=== PATIENT | female | born 1930 | race Caucasian/White ===

== ENCOUNTER → 2016-11-14 | Outpatient (CLI) | payer OTHER | LOC: BMCIMAGING 13:51 | PROVIDERS: ATTEND Nurse Practitioner Adult Health | DX: N83.8 Other noninflammatory disorders of ovary, fallopian tube and broad ligament (principal) ==

== ENCOUNTER → 2016-12-10 | Outpatient (CLI) | payer OTHER ==
[~2016-12-10] MED LIST: IOPAMIDOL (ISOVUE-300) 100 ML BTL IV ONE
== END ==
LOC: FIMAGING 12:25
PROVIDERS: ATTEND Internal Medicine
DX: K46.9 Unspecified abdominal hernia without obstruction or gangrene (principal); K44.9 Diaphragmatic hernia without obstruction or gangrene; K40.90 Unilateral inguinal hernia, without obstruction or gangrene, not specified as recurrent
CPT/HCPCS: 74177; Q9967

== ENCOUNTER 2017-01-07 05:56 | Inpatient (IN) | payer OTHER ==
[2017-01-07] MEDS ORDERED: ONDANSETRON 4 MG/2 ML VIAL IVP ONE ×2 (06:15→09:29)
[2017-01-07] MEDS ORDERED: NS 1,000 ML IV ONE (06:15)
--- NOTE | 2017-01-07 06:15 | EDPHY ---
H & P Stated Complaint: NVD, malaise, generalized pain, since last evening, sharp pains R head Source: Patient - Personal History Current Tetanus/Diphtheria Vaccine: Yes Current Tetanus Diphtheria and Acellular Pertussis (TDAP): Yes - Medical/Surgical History Hx Asthma: No Hx Chronic Respiratory Disease: No Hx Diabetes: No Hx Cardiac Disease: No Hx Renal Disease: No Hx Cirrhosis: No Hx Alcoholism: No Hx HIV/AIDS: No Hx Splenectomy or Spleen Trauma: No Other PMH: left shoulder rotator cuff. Rib fx, cholecystectomy, fracture right foot, ovarian cyst, HTN, hernia repair, osteopenia - Social History Smoking Status: Never smoked <Emily Serrano - Last Filed: 01/07/17 06:47> <Miguel Angel Cunningham - Last Filed: 01/07/17 10:30> Time Seen by Provider: 01/07/17 06:09 HPI/ROS: HPI The patient presents with nausea, vomiting, diarrhea which began last night at approximately 6:00 p.m. suddenly. She has had 1 episode of nonbloody nonbilious emesis. She has had multiple episodes of which she describes as explosive diarrhea which is watery and nonbloody. She is having these episodes nearly every 10 minutes. This is not associated with any fever or abdominal pains. She resides at [facility] and there are several sick residents there with similar symptoms. She has not recently been on antibiotics. She also complains of right-sided head pain which feels like a tingling sensation around her ear. It reminds her of the time when she had shingles 20 years ago. This is been present for about 1 week. She has not had any rash. It is quite mild. REVIEW OF SYSTEMS Constitutional: No fever, no chills. Eyes: No discharge. ENT: No sore throat. Cardiovascular: No chest pain, no palpitations. Respiratory: No cough, no shortness of breath. Gastrointestinal: No abdominal pain, no vomiting. Genitourinary: No hematuria. Musculoskeletal: No back pain. Skin: No rashes. Neurological: No headache. PMHx: Left-sided inguinal hernia repair, left-sided ovarian cyst Soc Hx: Resides at [facility] PHYSICAL General Appearance: Alert, no distress Eyes: Pupils equal and round no pallor or injection ENT, Mouth: Mucous membranes moist Respiratory: There are no retractions, lungs are clear to auscultation Cardiovascular: Regular rate and rhythm Gastrointestinal: Abdomen is soft with tenderness in L inguinal region which is quite mild, no overlying skin changes or area of fluctuance, no masses, bowel sounds normal Neurological: A&O, moves all extremities Skin: Warm and dry, no rashes Musculoskeletal: Neck is supple non tender Extremities: symmetrical, full range of motion Psychiatric: Patient is oriented X 3, there is no agitation (Emily Serrano) Constitutional: Initial Vital Signs Temperature (C) 36.9 C 01/07/17 05:58 Heart Rate 94 01/07/17 05:58 Respiratory Rate 16 01/07/17 05:58 Blood Pressure 142/78 H 01/07/17 05:58 O2 Sat (%) 98 01/07/17 05:58 O2 Delivery Mode Room Air Allergies/Adverse Reactions: codeine Allergy (Verified 01/07/17 06:05) Vomiting Home Medications: Medication Instructions Recorded Aspirin EC [Aspirin EC 81 mg (*)] 81 mg PO DAILY 09/26/15 Tears/Hypromellose [Natural 1 drops EACHEYE BID 09/26/15 Balance] cycloSPORINE 0.05% [Restasis Opht 1 drop EACHEYE BID 09/26/15 Drops(*)] amLODIPine BESYLATE [Norvasc 2.5 2.5 mg PO DAILY #30 tab 09/27/15 mg (*)] Herbals/Supplements -Info Only 1 ea PO DAILY 01/09/16 Multivitamin with Minerals 1 each PO DAILY 01/09/16 [Multiple Vitamin] Ondansetron Odt [Zofran Odt 4 mg 4 mg PO Q4 PRN #10 tab 01/07/17 (*)] Medical Decision Making <Emily Serrano - Last Filed: 01/07/17 06:47> <Miguel Angel Cunningham - Last Filed: 01/07/17 10:30> - Diagnostics Imaging: Imaging Impressions Abdomen CT 01/07/17 06:40 Impression: 1. Stable left adnexal cyst. 2. Previous cholecystectomy, hysterectomy, and right oophorectomy as well as appendectomy. 3. Scoliosis with underlying degenerative disk disease involving the thoracolumbar spine visualized severe spinal stenosis at L4-L5. These findings were discussed by telephone with Dr. Miguel Angel Cunningham at 0 825hrs. ED Course/Re-evaluation: 7:00 a.m.- The patient is awaiting most labs and CT scan. The case is signed out to the oncoming provider Dr. Cunningham. (Emily Serrano) Differential Diagnosis: This is an 86-year-old female with history of left ovarian cyst, left inguinal hernia repair, hypertension, who resides at an assisted living facility and is presenting with about 12 hours of nausea, vomiting, diarrhea. There are several sick residents at her facility. On exam, she is relatively well appearing with normal vital signs. She does have mild tenderness in her left inguinal region, however says this has been present for the last several months and is about 1 year status post inguinal hernia repair. She is complaining of a right-sided intermittent headache for the last 1 week, feels similar to her prior episode of shingles, however I do not appreciate any rash and her TM is normal appearing. Ear canal shows no vesicles. Differential diagnosis includes viral gastroenteritis, toxin mediated enterocolitis, colitis, less likely appendicitis or incarcerated hernia. Plan for IV fluids, basic labs, stool culture, CT scan. (Emily Serrano) Other Provider: 0900: Reassessed patient. She is feeling improved and wants to go home with her daughter, who is at bedside. She is tolerating PO without issue. I offered admission, which she declined. She will be discharged gastroenteritis and recommended follow up with her PCP. Return precautions given. She is comfortable with this plan. 1000: As patient was preparing for discharge, she began to feel nauseated again. Her daughter does not believe she will be able to remain hydrated at home as she is too weak to care for herself. She is now having difficulty tolerating PO fluids. She will require admission for gastroenteritis and dehydration. 1030: Dr. Mesa, hospitalist, accepts admission. (Miguel Angel Cunningham) - Data Points Laboratory Results: Laboratory Results 01/07/17 06:30 01/07/17 06:30 01/07/17 01/07/17 01/07/17 08:30 06:30 06:30 WBC 6.88 10^3/uL 10^3/uL (3.80-9.50) RBC 4.02 10^6/uL L 10^6/uL (4.18-5.33) Hgb 12.5 g/dL L g/dL (12.6-16.3) Hct 37.6 % L % (38.0-47.0) MCV 93.5 fL fL (81.5-99.8) MCH 31.1 pg pg (27.9-34.1) MCHC 33.2 g/dL g/dL (32.4-36.7) RDW 13.3 % % (11.5-15.2) Plt Count 206 10^3/uL 10^3/uL (150-400) MPV 10.7 fL fL (8.7-11.7) Neut % (Auto) 86.1 % H % (39.3-74.2) Lymph % (Auto) 3.9 % L % (15.0-45.0) [place] % (Auto) 9.3 % % (4.5-13.0) Eos % (Auto) 0.0 % L % (0.6-7.6) Baso % (Auto) 0.3 % % (0.3-1.7) Nucleat RBC Rel Count 0.0 % % (0.0-0.2) Absolute Neuts (auto) 5.92 10^3/uL 10^3/uL (1.70-6.50) Absolute Lymphs (auto) 0.27 10^3/uL L 10^3/uL (1.00-3.00) Absolute Monos (auto) 0.64 10^3/uL 10^3/uL (0.30-0.80) Absolute Eos (auto) 0.00 10^3/uL L 10^3/uL (0.03-0.40) Absolute Basos (auto) 0.02 10^3/uL 10^3/uL (0.02-0.10) Absolute Nucleated RBC 0.00 10^3/uL 10^3/uL (0-0.01) Immature Gran % 0.4 % % (0.0-1.1) Immature Gran # 0.03 10^3/uL 10^3/uL (0.00-0.10) VBG Lactic Acid Sodium 138 mEq/L mEq/L (134-144) Potassium 3.7 mEq/L mEq/L (3.5-5.2) Chloride 107 mEq/L mEq/L (97-110) Carbon Dioxide 22 mEq/l mEq/l (22-31) Anion Gap 9 mEq/L mEq/L (8-16) BUN 24 mg/dL H mg/dL (7-23) Creatinine 0.7 mg/dL mg/dL (0.6-1.0) Estimated GFR > 60 Glucose 150 mg/dL H mg/dL (70-100) Calcium 8.9 mg/dL mg/dL (8.5-10.4) Total Bilirubin 1.0 mg/dL mg/dL (0.1-1.4) Conjugated Bilirubin 0.3 mg/dL mg/dL (0.0-0.5) Unconjugated Bilirubin 0.7 mg/dL mg/dL (0.0-1.1) AST 20 IU/L IU/L (14-46) ALT 25 IU/L IU/L (9-52) Alkaline Phosphatase 65 IU/L IU/L (38-126) Total Protein 6.7 g/dL g/dL (6.3-8.2) Albumin 4.0 g/dL g/dL (3.5-5.0) Lipase 46.0 IU/L IU/L (23-300) Urine Color YELLOW Urine Appearance CLEAR Urine pH 5.0 (5.0-7.5) Ur Specific [place] > 1.035 H (1.002-1.030) Urine Protein NEGATIVE (NEGATIVE) Urine Ketones NEGATIVE (NEGATIVE) Urine Blood NEGATIVE (NEGATIVE) Urine Nitrate NEGATIVE (NEGATIVE) Urine Bilirubin NEGATIVE (NEGATIVE) Urine Urobilinogen NEGATIVE EU EU (0.2-1.0) Ur Leukocyte Esterase NEGATIVE (NEGATIVE) Ur Culture Indicated? NOT INDICATED (NI) Urine Glucose NEGATIVE (NEGATIVE) 01/07/17 06:30 WBC RBC Hgb Hct MCV MCH MCHC RDW Plt Count MPV Neut % (Auto) Lymph % (Auto) [place] % (Auto) Eos % (Auto) Baso % (Auto) Nucleat RBC Rel Count Absolute Neuts (auto) Absolute Lymphs (auto) Absolute Monos (auto) Absolute Eos (auto) Absolute Basos (auto) Absolute Nucleated RBC Immature Gran % Immature Gran # VBG Lactic Acid 1.4 mmol/L mmol/L (0.7-2.1) Sodium Potassium Chloride Carbon Dioxide Anion Gap BUN Creatinine Estimated GFR Glucose Calcium Total Bilirubin Conjugated Bilirubin Unconjugated Bilirubin AST ALT Alkaline Phosphatase Total Protein Albumin Lipase Urine Color Urine Appearance Urine pH Ur Specific [place] Urine Protein Urine Ketones Urine Blood Urine Nitrate Urine Bilirubin Urine Urobilinogen Ur Leukocyte Esterase Ur Culture Indicated? Urine Glucose Medications Given: Discontinued Medications Sodium Chloride (Ns) 1,000 mls @ 0 mls/hr IV ONCE ONE PRN Reason: Wide Open Stop: 01/07/17 06:16 Last Admin: 01/07/17 06:27 Dose: 1,000 mls Ibuprofen (Motrin) 400 mg PO EDNOW ONE Stop: 01/07/17 09:31 Last Admin: 01/07/17 09:30 Dose: 400 mg Ondansetron HCl (Zofran) 4 mg IVP EDNOW ONE Stop: 01/07/17 06:16 Last Admin: 01/07/17 06:30 Dose: 4 mg Ondansetron HCl (Zofran) 4 mg IVP EDNOW ONE Stop: 01/07/17 09:30 Last Admin: 01/07/17 09:30 Dose: 4 mg Departure <Emily Serrano - Last Filed: 01/07/17 06:47> <Miguel Angel Cunningham - Last Filed: 01/07/17 10:30> - Departure Disposition: [facility] Inpatient Acute Clinical Impression: Nausea vomiting and diarrhea Condition: Fair Instructions: Dehydration (ED), Gastroenteritis (ED) Additional Instructions: Please make sure to drink plenty of fluids. You should return to the emergency room if your worse in any way. Referrals: Gio La MD [Primary Care Provider] - As per Instructions Prescriptions: Ondansetron Odt [Zofran Odt 4 mg (*)] 4 mg PO Q4 PRN #10 tab PRN Reason: Nausea/Vomiting, Can'T Take Po Report Scribed for: Miguel Angel Cunningham Report Scribed by: Cherrie Sánchez Date of Report: 01/07/17 Time of Report: 10:30 <Miguel Angel Cunningham - Last Filed: 01/07/17 10:30>
[2017-01-07 06:38] LABS: % IMMATURE GRANULYOCYTES 0.4 % (0.0-1.1); ABSOLUTE IMMATURE GRANULOCYTES 0.03 10^3/uL (0.00-0.10); ADD DIFF? NO; ADD MORPH? NO; ADD SCAN? NO; ATYPICAL LYMPHOCYTE FLAG 0 (0-99); FRAGMENT RBC FLAG 0 (0-99); HEMATOCRIT 37.6 % (38.0-47.0); HEMOGLOBIN 12.5 g/dL (12.6-16.3); LEFT SHIFT FLG 10 (0-99); LIPEMIA HEMOLYSIS FLAG 80 (0-99); MEAN CELL HEMOGLOBIN 31.1 pg (27.9-34.1); MEAN CELL HEMOGLOBIN CONCENTR. 33.2 g/dL (32.4-36.7); MEAN CELL VOLUME 93.5 fL (81.5-99.8); MEAN PLATELET VOLUME 10.7 fL (8.7-11.7); PLATELET CLUMPS FLAG 10 (0-99); PLATELET COUNT 206 10^3/uL (150-400); RED BLOOD CELL COUNT 4.02 10^6/uL (4.18-5.33); RED CELL DISTRIBUTION WIDTH 13.3 % (11.5-15.2)
[2017-01-07] MEDS ORDERED: IOPAMIDOL (ISOVUE-300) 100 ML BTL IV ONE (06:52)
[2017-01-07 07:01] LABS: ALANINE AMINOTRANSFERASE 25 IU/L (9-52); ALKALINE PHOSPHATASE 65 IU/L (38-126); ANION GAP 9 mEq/L (8-16); ASPARTATE AMINOTRANSFERASE 20 IU/L (14-46); BILIRUBIN-CONJUGATED 0.3 mg/dL (0.0-0.5); BILIRUBIN-UNCONJUGATED 0.7 mg/dL (0.0-1.1); CALCIUM 8.9 mg/dL (8.5-10.4); CARBON DIOXIDE 22 mEq/l (22-31); CHLORIDE 107 mEq/L (97-110); CREATININE 0.7 mg/dL (0.6-1.0); GLOMERULAR FILTRATION RATE > 60; GLUCOSE 150 mg/dL (70-100); POTASSIUM 3.7 mEq/L (3.5-5.2); SODIUM 138 mEq/L (134-144); TOTAL PROTEIN 6.7 g/dL (6.3-8.2)
[2017-01-07 08:58] LABS: COLOR YELLOW; LEUKOCYTE ESTERASE,URINE NEGATIVE (NEGATIVE); NITRITE,URINE NEGATIVE (NEGATIVE)
[2017-01-07] MEDS ORDERED: IBUPROFEN 200 MG TAB PO ONE (09:30)
[2017-01-07] MEDS ORDERED: ONDANSETRON DISINTEGRATING 4 MG TAB PO PRN (11:38)
[2017-01-07] MEDS ORDERED: ONDANSETRON 4 MG/2 ML VIAL IVP PRN (11:38)
[2017-01-07] MEDS: NS 1,000 ML IV SCH (13:00)
--- NOTE | 2017-01-07 13:46 | GHP ---
[f rep st] HISTORY AND PHYSICAL DATE OF ADMISSION: 01/07/2017 CHIEF COMPLAINT: Nausea with associated vomiting and diarrhea. HISTORY OF PRESENT ILLNESS: Sheri Crisostomo is an 86-year-old female, with a past medical history that includes hypertension, left inguinal hernia repair approximately a year ago with residual left lower quadrant pain, who presented to the emergency room with complaints of nausea, vomiting and diarrhea which began approximately at 6:00 p.m. last night. She had approximately 10 to 12 bouts of diarrhea last night and 1 bout this morning. She did not see any blood or maroon colored stool. She took Imodium without good results. She had 1 bout of vomiting last night, but none further. She denies any hematemesis associated with this. She denies any fever, but has had some chills. In addition, she has been complaining of ongoing left lower quadrant pain. This has been ongoing since she had a left inguinal hernia repair with Dr. Hall. She was seen and evaluated by Dr. Lawrence, who was on-call for him in the outpatient setting. He thought it was secondary to the mesh and recommended heat and ibuprofen, which have overall helped with the pain. In addition, she describes having flashes of pain on the right side of her head area. She said she had similar symptoms 20 years ago when she had shingles. She was vaccinated for the shingles. She has had no changes in her vision. She is overall feeling well, except for having the 1 episode of diarrhea and then had some nausea. PAST MEDICAL HISTORY: 1. Hypertension. 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 3. Sciatic back pain that has resolved. 4. 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 5. Ovarian cyst drainage. 6. Pulmonary nodules up to 6 mm in size. PAST SURGICAL HISTORY: 1. Bladder repair. 2. Hysterectomy in 1970. 3. Cholecystectomy. 4. Left inguinal hernia repair approximately a year ago. 5. Ovarian cyst drainage. SOCIAL HISTORY: She lives independently at [facility]. She uses a walker and a cane to ambulate. She rarely drinks any wine. She has 2 children. She has been since 1974. She is very active and does exercise classes. FAMILY HISTORY: Both parents are . ALLERGIES: Codeine. HOME MEDICATIONS: Include Restasis 1 drop to each eye b.i.d., Norvasc 2.5 mg p.o. q.h.s., Natural Balance tears t.i.d., Zofran 4 mg q.4 hours p.r.n., herbal supplements daily, and aspirin 81 mg daily. REVIEW OF SYSTEMS: A 10-point review of systems was performed. It was negative other than pertinent positives in HPI and Past Medical History. PHYSICAL EXAM: GENERAL: Sheri Crisostomo is an 86-year-old female, who appears to be in overall very good health. VITAL SIGNS: Blood pressure is 134/ 69, heart rate 70, respiratory rate is 18, O2 sats on room air 92%, temperature is 36.0 Celsius. EYES: Pupils are equal and reactive. EOMs are intact. No conjunctival injection noted. ENT: Normal ears. Hearing intact. Normal lips , teeth. Oral airways intact. NECK: Trachea is midline. CARDIOVASCULAR: She is in a regular rate and rhythm. No murmurs, rubs, or gallops noted. CHEST /LUNGS: She has normal respiratory effort. No wheezing, rales. She has a few rhonchi noted at her right base. ABDOMEN: Soft, nontender. No rebound. No guarding. SKIN: No rashes, ulcer. Warm, dry and intact. MUSCULOSKELETAL: Normal gait. Equal upper and lower extremity strength. PSYCHIATRIC: She is alert and oriented. Her mood and affect normal. Judgment, insight and normal memory. LABORATORY DATA: CBC shows a white blood cell count of 6.88, hemoglobin 12.5, hematocrit of 37.6, platelet count of 206. Lactic acid was 1.4. Chemistry panel shows a sodium of 138, potassium 3.7, chloride 107, BUN of 24, creatinine 0.7, glucose of 150, total bilirubin is 1, AST 20, ALT 25, alkaline phosphatase 65, lipase is 46. Urinalysis shows an elevated urine specific gravity, but otherwise stable. A CT of the abdomen was performed, which shows a stable left adnexal cyst. It notes that she has scoliosis with underlying degenerative disc disease involving the thoracolumbar spine with severe spinal stenosis at L4-L5. Nothing acute was noted on the CT scan, but thickening on the left inguinal region presumably from a previous inguinal hernia repair. It also notes that she has an incidental stable inguinal hernia noted on the right containing omental fat. ASSESSMENT/PLAN: 1. Most likely a viral gastroenteritis. Will gently hydrate her and place her on a clear liquid diet. Stool studies are pending. 2. Pain on the right side of her face area. This has been intermittent. Will monitor her for any type of shingles outbreak. 3. Hypertension. Resumed her home medication. 4. Code status: Do not resuscitate. 5. Length of stay: She will likely require less than a 2-midnight stay, which will make her observation status. 6. DVT prophylaxis, high risk. Will place on low molecular weight heparin. 7. Some left lower quadrant pain in the hernia area. Recommended she should get further evaluation with Dr. Hall if this should continue. /[id number]/MODL MTDD
[2017-01-07] MEDS: TEARS/DEXTRAN 70/HYPROMELLOSE 15 ML OPHT.BTL EACHEYE SCH ×2 (16:41→21:52)
[2017-01-07] MEDS: ACETAMINOPHEN 325 MG TAB PO PRN (22:58)
[2017-01-08] MEDS: CYCLOSPORINE 0.05% 1 EACH BOX EACHEYE SCH ×3 (00:23→19:59)
[2017-01-08] MEDS ORDERED: LOPERAMIDE HCL 2 MG CAP PO PRN (00:25)
[2017-01-08] MEDS: NS 1,000 ML IV SCH (02:44)
[2017-01-08 05:54] LABS: % IMMATURE GRANULYOCYTES 0.5 % (0.0-1.1); ABSOLUTE IMMATURE GRANULOCYTES 0.03 10^3/uL (0.00-0.10); ADD DIFF? NO; ADD MORPH? NO; ADD SCAN? NO; ATYPICAL LYMPHOCYTE FLAG 0 (0-99); FRAGMENT RBC FLAG 0 (0-99); HEMATOCRIT 32.9 % (38.0-47.0); HEMOGLOBIN 10.5 g/dL (12.6-16.3); LEFT SHIFT FLG 10 (0-99); LIPEMIA HEMOLYSIS FLAG 80 (0-99); MEAN CELL HEMOGLOBIN 31.3 pg (27.9-34.1); MEAN CELL HEMOGLOBIN CONCENTR. 31.9 g/dL (32.4-36.7); MEAN CELL VOLUME 98.2 fL (81.5-99.8); MEAN PLATELET VOLUME 10.8 fL (8.7-11.7); PLATELET CLUMPS FLAG 0 (0-99); PLATELET COUNT 152 10^3/uL (150-400); RED BLOOD CELL COUNT 3.35 10^6/uL (4.18-5.33); RED CELL DISTRIBUTION WIDTH 13.7 % (11.5-15.2)
[2017-01-08] MEDS ORDERED: Herbals/Supplements -Info Only PO SCH (09:00)
[2017-01-08] MEDS: MULTIVITAMINS W-MINERALS 1 EACH TAB PO SCH (09:44)
[2017-01-08] MEDS: ASPIRIN EC 81 MG TAB PO SCH (09:44)
[2017-01-08] MEDS: ENOXAPARIN 40 MG/0.4 ML SYR SC SCH (09:44)
[2017-01-08] MEDS: TEARS/DEXTRAN 70/HYPROMELLOSE 15 ML OPHT.BTL EACHEYE SCH ×3 (09:45→19:59)
[2017-01-08] MEDS: ACETAMINOPHEN 325 MG TAB PO PRN (14:17)
--- NOTE | 2017-01-08 15:17 | HOSPPROG ---
Hospitalist Progress Note Assessment/Plan: 86 yo F with w/hx of HTN and chronic LLQ pain s/p LIH repair presenting with diarrhea as well as n/v # diarrhea: has largely resolved, though returned slightly when moved on to solid foods. Suspect viral gastroenteritis, GI PCR panel negative. Will monitor overnight given severity of sxs yesterday and concerns that sxs recurred slightly with eating. # n/v: as above, has not had any episodes since yesterday # chronic LLQ pain: has been present since her LIH repair, abd ct performed yesterday and personally reviewed showing post operative changes and stable adnexal cyst but no explanation for her pain. Today pain is largely resolved. # htn: continue amlodipine # dnr # dispo: IP status, will need > 48 hours stay for eval/mgmt of above given continued inability to tolerate po is not safe for dc home patient new to my care. Old records reviewed and summarized as above. Subjective: no significant overnight events, patient had no n/v/d overnight but diarrhea recurred after eating breakfast, pain minimal Objective: Vital Signs Temp Pulse Resp BP Pulse Ox 37.7 C 78 20 121/64 H 93 01/08/17 14:12 01/08/17 08:00 01/08/17 08:00 01/08/17 08:00 01/08/17 08:00 Microbiology 01/07/17 13:10 Gastrointestinal Tract Panel (PCR) - Final Stool No Organism Detected Laboratory Results 01/08/17 05:17 01/07/17 01/08/17 01/09/17 05:59 05:59 05:59 Intake Total 2493 Balance 2493 awake alert nad anicteric op clear rrr no mrg cta b soft min ttp llq +bs no cce warm dry well perfused oriented appopriate ICD10 Worksheet Patient Problems: Problems Problem Status Onset Hypertension Acute Chest pain Acute Urinary tract infection Acute Nausea vomiting and diarrhea Acute
[2017-01-08 23:40] VITALS: O2SAT 91
[2017-01-09] MEDS: ASPIRIN EC 81 MG TAB PO SCH (08:04)
[2017-01-09] MEDS: MULTIVITAMINS W-MINERALS 1 EACH TAB PO SCH (08:04)
[2017-01-09] MEDS: ENOXAPARIN 40 MG/0.4 ML SYR SC SCH (08:04)
[2017-01-09] MEDS: CYCLOSPORINE 0.05% 1 EACH BOX EACHEYE SCH (08:21)
[2017-01-09] MEDS: TEARS/DEXTRAN 70/HYPROMELLOSE 15 ML OPHT.BTL EACHEYE SCH (08:21)
[2017-01-09 08:47] VITALS: BP 142/63; PULSE 59; RESP 14; TEMP 98
--- NOTE | 2017-01-09 10:40 | PDDCSUM ---
Discharge Summary Discharge Summary: Dates of service 01/07-01/09/17 Procedures: abd ct consultations: none Hospital course by problem: # diarrhea: resolved. Suspect viral gastroenteritis, GI PCR panel negative. Had solid BM today. # n/v: as above, now resolved # chronic LLQ pain: has been present since her LIH repair, abd ct performed yesterday and personally reviewed showing post operative changes and stable adnexal cyst but no explanation for her pain. Today pain is largely resolved. # htn: continue amlodipine # dnr DC home f/u with PCP Meds: see EHR > 35 minutes spent in dc of patient, more than half in face to face counseling regarding f/u care plan as well as coordination of care
== END 2017-01-09 13:43 | disposition home or self-care (01) | DRG 392 ==
LOC: F3E 11:04 → OBSVTOIN 22:51 → INTOOBSV 22:51 → OBSVTOIN 01-08 15:14
PROVIDERS: ADMIT Internal Medicine; ATTEND Internal Medicine
DX: A08.4 Viral intestinal infection, unspecified (principal); G50.1 Atypical facial pain; I10 Essential (primary) hypertension; H18.50 Unspecified hereditary corneal dystrophies; Z66 Do not resuscitate
CPT/HCPCS: 96374; 97165-GO; G0378; G8987-GO-CI; G8988-GO-CI; G8989-GO-CI; J1650; J2405; Q9967

== ENCOUNTER → 2017-06-14 | Outpatient (CLI) | payer OTHER | LOC: FCPNEURO 20:00 | PROVIDERS: ATTEND Psychiatry & Neurology Sleep Medicine | DX: G47.33 Obstructive sleep apnea (adult) (pediatric) (principal) ==

== ENCOUNTER → 2017-09-06 | Outpatient (CLI) | payer OTHER | LOC: BMCIMAGING 12:42 | PROVIDERS: ATTEND Internal Medicine | DX: E04.1 Nontoxic single thyroid nodule (principal) | CPT/HCPCS: 76536-PO ==